=== PATIENT | female | born 1950 | race Caucasian/White ===

== ENCOUNTER → 2016-10-14 | Day surgery (SDC) | payer OTHER ==
[~2016-10-14] MED LIST: ACETAMINOPHEN 1000 MG/100 ML VIAL IV ONE; APREPITANT 40 MG CAP ONE; HALOPERIDOL LACTATE 5 MG/ML AMP IV ONE; ISOSULFAN BLUE 50 MG/5 ML VIAL SQ ONE; LACTATED RINGER'S 1000 ML INJ 1,000 ML ONE; LIDOCAINE 1%/EPINEPHrine 1:100,000 SOLN 20 ML VIAL ONE; MIDAZOLAM HCL 2 MG/2 ML VIAL ONE; ONDANSETRON HCL 4 MG/2 ML VIAL IV PUSH ONE; PROPOFOL 200 MG/20 ML AMP IV ONE; ceFAZolin 2 GM PREMIX 50 ML ONE; ePHEDrine/NS 25 MG/5 ML SYR IV ONE
--- NOTE | 2016-10-15 11:30 | MP ---
cc: [facility] DATE OF SURGERY 10/14/2016 PREOPERATIVE DIAGNOSIS Carcinoma left breast. POSTOPERATIVE DIAGNOSIS Carcinoma left breast. PROCEDURE Needle-localized wide excision of left breast carcinoma and sentinel lymph node biopsy left axilla with axillary sampling. SURGEON Iavn Hope MD PUBLIC RELATIONS SUPERVISOR ELIER Lee/S ANESTHESIA General OPERATIVE FINDINGS AND PROCEDURE The patient was brought to the operating room after having undergone injection of nuclear material around the previously identified breast cancer and she also underwent needle localization the previous percutaneous biopsy site. She was then brought to the operating room and placed under satisfactory general anesthesia. The breast was then prepped and draped in the usual sterile fashion. 1% lidocaine and epinephrine was used to infiltrate the skin for local anesthesia. A transverse infra-axillary incision was made, carried down sharply through the subcutaneous tissue with cautery being used for hemostasis. The incision was deepened into the axilla proper by incising the clavipectoral fascia. Using the navigator probe, the area of highest radioactivity was identified and dissected free with hemostasis assured with hemoclips as well as the cautery. The sentinel node was then identified within the specimen as having the highest radioactivity. It was then marked with a silk suture and sent for permanent pathology as sentinel lymph node. Hemostasis was strictly assured. The subcutaneous tissue was closed with interrupted 3-0 Vicryl suture and the skin closed with interrupted 4-0 PDS subcuticular stitches. Attention was then turned to the breast were lidocaine was again infiltrated the skin for local anesthesia. A curvilinear incision was made between the needle skin entrance site and the areola. It is carried down sharply through the subcutaneous tissue with cautery being is hemostasis. The incision was deepened into the breast parenchyma whereupon the guidewire was grasped with a hemostat. It was amputated at the level of the skin and then dissected free from the surrounding tissue and elevated into the wound. A large core of tissue was dissected free from around the guidewire using the cautery. It was sent for specimen mammography which revealed the presence of the lesion in question. Hemostasis was strictly assured and the subcutaneous tissue and skin were closed with interrupted 4-0 PDS subcuticular stitches. The specimen was marked with a long silks the silk suture for medial orientation and a short silk suture for superior orientation. The area of the breast wide excision was injected with further lidocaine after which Steri-Strips and a sterile drapes were applied. The patient was then awakened and taken from the operating room, in satisfactory condition, having tolerated the procedure without problem. Estimated blood loss was less than 10 mL. The instrument, sponge, and needle counts were reported as being correct x2 at the end of procedure. MD PRIMO Youngblood/AUREA /3:08 PM /11:27 AM
== END | disposition home or self-care (01) ==
LOC: ESDC 08:55
PROVIDERS: ATTEND Surgery
DX: C50.912 Malignant neoplasm of unspecified site of left female breast (principal)
CPT/HCPCS: 00400; 01610; 19125; 38525; 38792; 88307; J0131; J0690; J1630; J2250; J2405; J3010; J7120; J8501; Q9968

== ENCOUNTER → 2016-11-03 | Day surgery (SDC) | payer OTHER ==
[~2016-11-03] VITALS: Ht 167.6 cm; Wt 61.7 kg
[~2016-11-03] MED LIST changes: +ACET-822 PO; +ACETAMINOPHEN 1000 MG/100 ML VIAL IV SCH; +ALPR0.25 PO; -APREPITANT 40 MG CAP ONE; +ASPI-437 PO; +CALTCHW5 PO; +CHLORHEXIDINE GLUCONATE 2 % 1 PACK (2 CLOTHS) TOPICAL PRN; +CLAR10CA3 PO; +DEXAMETHASONE SOD PHOS 4 MG/ML VIAL ONE; +ESSE250T PO; +FAMOTIDINE 20 MG/2 ML VIAL ONE; +FLAX1000 PO; -HALOPERIDOL LACTATE 5 MG/ML AMP IV ONE; +HEPARIN SODIUM - IV 10,000 UNITS/10 ML VIAL ONE; +HEPARIN SODIUM - SQ 10,000 UNITS/ML VIAL SQ ONE; +IBUP200C PO; +INSULIN HUMAN REGULAR 1,000 UNITS/10 ML VIAL SQ PRN; -ISOSULFAN BLUE 50 MG/5 ML VIAL SQ ONE; -LACTATED RINGER'S 1000 ML INJ 1,000 ML ONE; +LACTATED RINGER'S 1000 ML IV PRN; +LIDOCAINE 1%/EPINEPHrine 1:100,000 SOLN 30 ML VIAL INFIL ONE; +LOVA20TA PO; +METOPROLOL TARTRATE 25 MG TAB PO PRN; +MULTTAB24 PO; +OCUVTAB PO; -ONDANSETRON HCL 4 MG/2 ML VIAL IV PUSH ONE; +POVIDONE IODINE 5% (ANTISEPSIS KIT) 4 APPLICATIONS EACH NARE PRN; +SODIUM BICARBONATE 8.4% INJ 50 ML ONE; +SODIUM CHLORID 0.9% 500 ML IV PRN; +SODIUM CHLORIDE 0.9% 20 ML VIAL ONE; +VITA2000 PO; +VITA250C3 CHEW; +ceFAZolin 2 GM PREMIX 50 ML IV SCH; -ePHEDrine/NS 25 MG/5 ML SYR IV ONE
[2016-11-03 07:04] VITALS: BP 158/70; PULSE 64; RESP 20; TEMP 98.2; O2SAT 100
[2016-11-03 10:06] VITALS: BP 138/55; PULSE 70; RESP 16; TEMP 97.5; O2SAT 100
--- NOTE | 2016-11-03 12:09 | RADRPT ---
EXAM DATE/TIME: 11/03/2016 09:17 [place] COMPARISON: No previous studies available for comparison. INDICATIONS : Left side infusaport placement. FLUORO TIME: .22 minutes IMAGE COUNT: 1 MEDICAL HISTORY : None. SURGICAL HISTORY : None. ENCOUNTER: Initial ACUITY: 1 day PAIN SCORE: Non-responsive. LOCATION: Left chest FINDINGS: Left Ijsqts-e-Fziv tip is projected over the superior vena cava. Limited spot film available. Unable to assess for pneumothorax. CONCLUSION: 1. Left Dgbjkn-n-Nasz tip projected over superior vena cava. Alexandro Alvarado MD on November 03, 2016 at 12:06 Board Certified Radiologist. This report was verified electronically.
== END | disposition home or self-care (01) ==
LOC: HSDC 06:28
PROVIDERS: ATTEND Surgery
DX: C50.912 Malignant neoplasm of unspecified site of left female breast (principal); E78.5 Hyperlipidemia, unspecified; I34.1 Nonrheumatic mitral (valve) prolapse; Z17.0 Estrogen receptor positive status [ER+]; Z79.82 Long term (current) use of aspirin; Z86.73 Personal history of transient ischemic attack (TIA), and cerebral infarction without residual deficits
CPT/HCPCS: 00532; 36561; C1788; J1100; J1644; J2250; 77001; J0131; J0690